=== PATIENT | female | born 1970 | race Caucasian/White ===

== ENCOUNTER 2016-06-17 09:01 | Emergency (ER) | payer SELFPAY ==
[2016-06-17 09:15] VITALS: TEMP 97.1
--- NOTE | 2016-06-17 09:43 | CT ---
EXAM DESCRIPTION: CT HEAD WITHOUT INTRAVENOUS CONTRAST CLINICAL HISTORY: Slurring of speech and facial droop COMPARISON: None. TECHNIQUE: CT of the head was performed without intravenous contrast . FINDINGS: There is motion artifact on the current study. There is presence of age indeterminate infarcts in the bilateral basal ganglia region, most likely acute. An MRI examination is more sensitive than the current study in evaluation of early acute infarcts, if present or clinically suspected. There is good espitia/white matter differentiation. The ventricular system is normal. Visualized mastoid air cells are unremarkable. The paranasal sinuses are unremarkable. Vascular calcifications in the left vertebral artery is noted There is no visualization of calvarial or skull base fractures. The findings were discussed with Dr. Garcia from the ER service at 9:41 a.m. IMPRESSION: There is presence of age indeterminate infarcts in the bilateral basal ganglia region, most likely acute. Electronically signed by: Jean Carlos Gambino MD 06/17/2016 09:41
--- NOTE | 2016-06-17 09:51 | ED.PDOC ---
History of Present Illness - General Chief Complaint: Neuro Symptoms/Deficits Stated Complaint: slurred speech, facial drooping, L shoulder pain Time Seen by Provider: 06/17/16 09:47 Source: patient, RN notes reviewed, Vital Signs reviewed, EMS notes reviewed Exam Limitations: no limitations - History of Present Illness Initial Comments: Ems was called up after this 45 y/o female was noted by family member to be drooling,slurred speech, weakness and pain left side,and facial droop left side. Timing/Duration: 1-3 hours Severity: moderate Improving Factors: nothing Worsening Factors: nothing Allergies/Adverse Reactions: Allergies NO KNOWN ALLERGY Allergy (Verified 06/17/16 09:43) Home Medications: Ambulatory Orders Insulin Detemir [Levemir Pen] 40 units SUBCU BEDTIME 02/08/15 Citalopram Hydrobromide [CeleXA] 20 mg PO DAILY 12/04/15 Insulin Regular (Human) [Humulin R] 0 unit IJ DAILY PRN 12/04/15 Lisinopril 10 mg PO DAILY 01/01/16 Nitrofurantoin Monohydrate Mac [Macrobid] 100 mg PO BID #20 cap 01/01/16 traZODone HCL [Desyrel] 50 mg PO BEDTIME 01/01/16 Sulfa/Trimeth 800/160 (Ds) Tab [Bactrim DS Tab] 0 ea PO BID #20 tab 05/29/16 Review of Systems - Review of Systems Constitutional: States: no symptoms reported EENTM: States: no symptoms reported Respiratory: States: no symptoms reported Cardiology: States: no symptoms reported Gastrointestinal/Abdominal: States: no symptoms reported Genitourinary: States: no symptoms reported Musculoskeletal: States: joint pain - left shoulder Neurological: States: see HPI Hematologic/Lymphatic: States: no symptoms reported Past Medical History (General) - Patient Medical History Hx Seizures: No Hx Stroke: No Hx Dementia: No Hx Asthma: No Hx of COPD: No Hx Cardiac Disorders: Yes Hx Congestive Heart Failure: No Hx Pacemaker: No Hx Hypertension: Yes Hx Thyroid Disease: Yes Hx Diabetes: Yes Hx Gastroesophageal Reflux: Yes Hx Renal Disease: Yes Hx Cancer: No Hx of HIV: No Hx Hepatitis C: No Hx MRSA: Yes - multiple wounds MRSA Source:: Wound Surgical History: appendectomy, other - leg - Vaccination History Hx Tetanus, Diphtheria Vaccination: No Hx Influenza Vaccination: No - unknown Hx Pneumococcal Vaccination: No - unknown - Social History Hx Tobacco Use: Yes Hx Chewing Tobacco Use: No Hx Alcohol Use: No Hx Substance Use: No Hx Substance Use Treatment: No Hx Depression: No Hx Physical Abuse: No Hx Emotional Abuse: No Hx Suspected Abuse: No - Female History Patient : No Family Medical History - Family History Mother Family History: Unknown Living Status: Hx Family;Other: pt adopted. unsure of hx. Father Family History: Unknown Living Status: Unknown Hx Family;Other: adopted Physical Exam - Physical Exam General Appearance: No apparent distress, Other - somnolent Ears, Nose, Throat: hearing grossly normal, normal ENT inspection, normal pharynx Neck: non-tender, full range of motion, supple Respiratory: chest non-tender, lungs clear, normal breath sounds, no respiratory distress, no accessory muscle use Cardiovascular/Chest: normal peripheral pulses, regular rate, rhythm Peripheral Pulses: radial,right: 2+, radial,left: 2+ Gastrointestinal/Abdominal: normal bowel sounds, non tender, soft, no organomegaly Back Exam: normal inspection, no CVA tenderness, no vertebral tenderness Extremity: normal range of motion, non-tender, other - below knee amputation right leg 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 Jorge Luis Hung. 06/17/16 10:45 - Results/Orders Results/Orders: 06/17/16 09:08 Shoulder,Left 2 or More Views [RAD] Stat 06/17/16 09:34 EKG Assessment ONCE 06/17/16 09:45 BNP [B-TYPE NATRIURETIC PEPTIDE/BNP] Stat CARDIAC PANEL,ER Stat EKG STAT Laboratory Results WBC 10.0 K/mm3 (4.8-10.8) 06/17/16 09:45 RBC 5.20 M/mm3 (4.20-5.40) 06/17/16 09:45 Hgb 14.0 gm/dL (12.0-16.0) 06/17/16 09:45 Hct 43.8 % (36.0-47.0) 06/17/16 09:45 MCV 84.2 fl (81.0-99.0) 06/17/16 09:45 MCH 26.9 pg (27.0-31.0) L 06/17/16 09:45 MCHC 32.0 g/dL (33.0-37.0) L 06/17/16 09:45 RDW 15.6 % (11.5-14.5) H 06/17/16 09:45 Plt Count 211 K/mm3 (130-400) 06/17/16 09:45 MPV 9.2 fl (7.40-10.4) 06/17/16 09:45 Absolute Neuts (auto) 6.60 K/uL (1.8-6.8) 06/17/16 09:45 Absolute Lymphs (auto) 2.70 K/uL (1.0-3.4) 06/17/16 09:45 Absolute Monos (auto) 0.40 K/uL (0.2-0.8) 06/17/16 09:45 Absolute Eos (auto) 0.20 K/uL (0.0-0.4) 06/17/16 09:45 Absolute Basos (auto) 0.10 K/uL (0.0-0.1) 06/17/16 09:45 Neutrophils % 66.3 % (42.0-78.0) 06/17/16 09:45 Lymphocytes % 26.8 % (20.0-50.0) 06/17/16 09:45 Monocytes % 3.7 % (2.0-9.0) 06/17/16 09:45 Eosinophils % 2.0 % (1.0-5.0) 06/17/16 09:45 Basophils % 1.2 % (0.0-2.0) 06/17/16 09:45 PT 10.5 SECONDS (9.4-12.5) 06/17/16 09:45 INR 0.930 06/17/16 09:45 PTT (SP) 36.2 SECONDS (25.1-36.5) 06/17/16 09:45 Sodium 137 mmol/L (135-145) 06/17/16 09:45 Potassium 6.8 mmol/L (3.6-5.0) H* 06/17/16 09:45 Chloride 113 mmol/L (101-111) H 06/17/16 09:45 Carbon Dioxide 21 mmol/L (21-31) 06/17/16 09:45 Anion Gap 9.8 (12-18) L 06/17/16 09:45 BUN 28 mg/dL (7-18) H 06/17/16 09:45 Creatinine 1.76 mg/dL (0.6-1.3) H 06/17/16 09:45 BUN/Creatinine Ratio 15.9 (10-20) 06/17/16 09:45 Random Glucose 129 mg/dL (70-105) H 06/17/16 09:45 Serum Osmolality 281.0 mOsm/L (275-295) 06/17/16 09:45 Calcium 8.5 mg/dL (8.4-10.2) 06/17/16 09:45 Magnesium 2.0 mg/dL (1.8-2.5) 06/17/16 09:45 Creatine Kinase 85 IU/L (26-140) 06/17/16 09:45 - EKG/XRAY/CT EKG: Sinus - no acute changes XRAY: chest - no acute abnormality CT: acute basal ganglia infarct bilateral CT Ordered: Yes CT Interpretation Call Back: Yes Departure - Departure Clinical Impression: Basal ganglia infarction, Diabetes 1.5, managed as type 1, Hyperkalemia, diminished renal excretion, CKD (chronic kidney disease) stage 3, GFR 30-59 ml/ min Time of Disposition: 10:12 - For transfer to -[facility] D/w ER Disposition: Transfer to Hospital Condition: Fair Departure Forms: ED Discharge - Pt. Copy, Patient Portal Self Enrollment Home Medications: Ambulatory Orders Insulin Detemir [Levemir Pen] 40 units SUBCU BEDTIME 02/08/15 Citalopram Hydrobromide [CeleXA] 20 mg PO DAILY 12/04/15 Insulin Regular (Human) [Humulin R] 0 unit IJ DAILY PRN 12/04/15 Lisinopril 10 mg PO DAILY 01/01/16 Nitrofurantoin Monohydrate Mac [Macrobid] 100 mg PO BID #20 cap 01/01/16 traZODone HCL [Desyrel] 50 mg PO BEDTIME 01/01/16 Sulfa/Trimeth 800/160 (Ds) Tab [Bactrim DS Tab] 0 ea PO BID #20 tab 05/29/16
--- NOTE | 2016-06-17 10:09 | RAD ---
EXAM DESCRIPTION: X-RAY CHEST- One View CLINICAL HISTORY: Stroke evaluation. COMPARISON: None. TECHNIQUE: Single view of the chest. FINDINGS: There are no discrete air space infiltrates, pneumothoraces or pleural effusions. The pulmonary vascularity is normal. The cardiomediastinal silhouette is unremarkable. IMPRESSION: There are no acute lung parenchymal findings. Electronically signed by: Jean Carlos Gambino MD 06/17/2016 10:07
--- NOTE | 2016-06-17 10:11 | RAD ---
EXAM DESCRIPTION: X-RAY left Shoulder Joint CLINICAL HISTORY: Status post fall and left shoulder joint pain. COMPARISON: None. TECHNIQUE: 3.0 views of the left shoulder joint. FINDINGS: There is no evidence of acute fractures or dislocations lesions involving the left shoulder joint. Limited evaluation of the adjacent scapula, clavicle, acromioclavicular joint does not show any fracture or dislocation. The visualized adjacent ribs appear unremarkable. There is no visualization of calcific tendonitis. There is no visualization of any radiopaque foreign bodies in the soft tissues around the shoulder joint. The left acromioclavicular joint shows mild degenerative change. The visualized adjacent soft tissues are unremarkable. IMPRESSION: There is no evidence of acute bony findings involving the left shoulder joint. Electronically signed by: Jean Carlos Gambino MD 06/17/2016 10:09
[2016-06-17] MEDS ORDERED: METOPROLOL TARTRATE INJ 5 MG/5 ML VIAL IV ONE (10:21)
[2016-06-17] MEDS ORDERED: SODIUM BICARBONATE 10MEQ/10ML 10 MEQ/10 ML SYG IV ONE (10:27)
[2016-06-17] MEDS ORDERED: CALCIUM GLUCONATE INJ 1 GM/10 ML VIAL IV ONE (10:27)
[2016-06-17] MEDS ORDERED: SOD POLYSTYRENE SULFONATE 15 GM/60 ML BTTL PO ONE (10:28)
[2016-06-17] MEDS ORDERED: INSULIN, REG.(HUMAN) 100 U/ML VIAL SUBCU ONE (10:31)
[2016-06-17] MEDS ORDERED: SODIUM BICARBONATE SYRINGE 50 MEQ/50 ML SYG IV ONE ×3 (10:32→10:38)
[2016-06-17] MEDS ORDERED: SODIUM CHLORIDE 0.9% 1000ML 1,000 ML IVS ONE (10:35)
[2016-06-17 11:05] VITALS: BP 194/100; O2SAT 96
== END 2016-06-17 11:00 | disposition short-term general hospital (02) ==
LOC: ER 09:01
DX: I63.8 Other cerebral infarction (principal); E87.5 Hyperkalemia; I12.9 Hypertensive chronic kidney disease with stage 1 through stage 4 chronic kidney disease, or unspecified chronic kidney disease; E11.22 Type 2 diabetes mellitus with diabetic chronic kidney disease; N18.3 Chronic kidney disease, stage 3 (moderate); K21.9 Gastro-esophageal reflux disease without esophagitis; E07.9 Disorder of thyroid, unspecified; Z86.14 Personal history of Methicillin resistant Staphylococcus aureus infection; Z79.4 Long term (current) use of insulin; Z79.899 Other long term (current) drug therapy; Z87.891 Personal history of nicotine dependence